=== PATIENT | male | born 1970 | race Caucasian/White ===

== ENCOUNTER 2019-10-24 10:14 | Emergency (ER) | payer OTHER ==
[~2019-10-24] VITALS: Ht 172.7 cm; Wt 90.0 kg
[2019-10-24 10:21] VITALS: BP 147/97
[2019-10-24] MEDS ORDERED: LIDOCAINE-MPF 1%, 5ML INFIL ONE (11:00)
[2019-10-24] MEDS ORDERED: THYR180T PO (11:13)
[2019-10-24] MEDS ORDERED: LIDOCAINE-MPF 1%, 5ML ONE ×2 (11:23→11:28)
[2019-10-24] MEDS ORDERED: NEOSPORIN OINT. PKT 1 PACKET ONE (11:39)
[2019-10-24] MEDS ORDERED: CEFAZOLIN 1,000 MG IM ONE (12:00)
[2019-10-24] MEDS ORDERED: CEFAZOLIN 1,000 MG ONE (12:12)
== END 2019-10-24 12:39 | disposition home or self-care (01) ==
LOC: ED 10:42
DX: S61.411A Laceration without foreign body of right hand, initial encounter (principal); S61.210A Laceration without foreign body of right index finger without damage to nail, initial encounter; Z85.850 Personal history of malignant neoplasm of thyroid; X58.XXXA Exposure to other specified factors, initial encounter; Y93.89 Activity, other specified; Y92.69 Other specified industrial and construction area as the place of occurrence of the external cause; Y99.8 Other external cause status
CPT/HCPCS: 12001; 73130; 96372; 99283; J0690